=== PATIENT | male | born 1995 | race Two or more races ===

== ENCOUNTER 2024-05-04 03:56 | Emergency (ER) | payer SELFPAY ==
--- NOTE | 2024-05-04 04:08 | EDNOTE_ITS ---
ED Psych RME/HPI General Chief Complaint: Psychiatric Symptoms Stated Complaint: MENTAL EVALUATION Time Seen by Provider: 05/04/24 04:05 Source: patient and EMS Arrival date/time: 05/04/24 03:56 Mode of arrival: EMS Limitations: no limitations RME / HPI RME / HPI Narrative: Dr. Topete?s Main ED Evaluation: 28-year-old male presents to the ED on a 5150 hold for psychiatric evaluation. Per EMS, the patient's father called 911 after the patient exhibited bizarre behavior, including crawling around in the attic. 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 He reports excessive caffeine consumption today while studying and states he heard mice in the attic, prompting him to set traps. He acknowledges possibly disturbing his father and siblings due to loud movements. The patient reports sleep deprivation, stating his last full eight-hour sleep was approximately two days ago. He denies suicidal or homicidal ideation and has no acute medical complaints. Related Data Previous Rx's ?Medication ?Instructions ?Recorded doxycycline monohydrate 100 mg 100 mg PO BID 7 days #1 4 caps 05/04/24 capsule ibuprofen 600 mg tablet 600 mg PO Q6H PRN pain #20 t abs 05/04/24 Allergies Allergy/AdvReac Type Severity Reaction Status Date / Time No Known Allergies Allergy Verified 05/04/24 04:17 Review of Systems Review of Systems Systems Reviewed: All systems reviewed, normal except as documented Past Medical History Social History SMOKING STATUS: Never smoker ED Exam General Limitations: Present no limitations General appearance: Present alert and in no apparent distress Head Head exam: Present atraumatic Eye Eye exam: Present normal appearance, PERRL and EOMI ENT ENT exam: Present normal exam, normal oropharynx and mucous membranes moist Neck Neck exam: Present normal inspection, full ROM and trachea midline Chest Chest inspection: Present normal inspection and symmetric chest wall rise Respiratory Respiratory exam: Present normal lung sounds bilaterally Cardiovascular Cardiovascular exam: Present regular rate, normal rhythm and normal heart sounds Abdominal Exam Abdominal exam: Present soft and normal bowel sounds Extremities Exam Extremities exam: Present normal inspection and full ROM Back Exam Back exam: Present normal inspection and full ROM Neurological Exam Neurological exam: Present alert, oriented X3 and CN II-XII intact Expanded Psychiatric Exam Expanded psych exam: Present pressured speech, delusional and auditory hallucinations Skin Skin exam: Present warm, dry, intact and normal color Course Quality Measures none Orders Category Date Time Status Diet Regular Diet 05/04/24 Breakfast Active Acetaminophen Stat Lab 05/04/24 04:57 Completed Alcohol, Blood Medical Stat Lab 05/04/24 04:57 Completed Basic Metabolic Panel Stat Lab 05/04/24 04:57 Completed CBC Stat Lab 05/04/24 04:57 Completed Drug Screen,Urine Stat Lab 05/04/24 05:10 Completed Salicylate Stat Lab 05/04/24 04:57 Completed TSH [Thyroid Stimulating Hormone] Stat Lab 05/04/24 04:57 Completed LORazepam [Ativan] Med 05/04/24 04:31 Discontinued 1 mg PO X1 ONE Vital Signs Vital signs: Vital Signs Temperature 99.2 F 05/04/24 04:27 Pulse Rate 123 H 05/04/24 04:27 Respiratory Rate 18 05/04/24 04:27 Blood Pressure 151/100 H 05/04/24 04:27 Pulse Oximetry (%) 97 05/04/24 04:27 Oxygen Delivery Method Room Air 05/04/24 04:27 Psych MDM Narrative MDM Narrative:: 0600 Care signed out to Dr. Dickinson. Past medical, surgical, social and family history reviewed. Vitals and home medications reviewed. Results and treatment plan discussed. They will assume the care of the patient at this time and will follow the patient, pending medical clearance and mental health evaluation. Scribe Attestation: I, Mark Vallejo, am scribing for and in the presence of Dr. Topete. Provider Notation: Although this document has been carefully reviewed, there may still be some phonetic and other typographical errors. These errors are purely grammatical due to imperfections in the software program and should not be construed in any way to compromise the substance of the patient's medical care during this visit. Patient data External records reviewed:: EMS form and None Clinical information provided by:: patient and EMS Social determinants that could affect healthcare access:: none Patient has the following chronic illnesses:: na How is presenting disease/condition affected by chronic disease/condition?: no chronic disease Evaluation data The following diagnostics were reviewed and interpreted by me:: lab results Lab and/or radiology exams considered but not ordered:: na Interpretation Summary: pending work-up Medications / Prescriptions Medications or Prescriptions considered but not ordered:: na Medication administrations:: Medication Administration History Discontinued Medications Lorazepam (Lorazepam 0.5 Mg Tablet) 1 mg PO X1 ONE Stop: 05/04/24 04:32 Last Admin: 05/04/24 04:58 Dose: 1 mg Documented By: LB as above, if any Consultations Consultation(s) initiated? (list below): Yes Consultation #1 (Physician, Specialty, Details): Mental health Diagnosis Psych Differential Diagnosis: other (Acute psychosis, cocaine abuse, methamphetamine abuse, and alcohol withdrawal.) Most likely diagnosis given after review of the tests above:: see clinical impression below Admission Indicated Admission indicated?: not indicated (sign out pending mental health eval) Admission Request Was there a request for admission?: No Disposition Plan Disposition Plan: other (specify) (sign out pending mental health eval) Discharge Plan Plan Patient Disposition: HOME (Self Care) Patient condition on transfer: Stable Prescriptions/Referrals Prescriptions/Med Rec: New ibuprofen 600 mg tablet 600 mg PO Q6H PRN (Reason: pain) Qty: 20 0RF doxycycline monohydrate 100 mg capsule 100 mg PO BID 7 Days Qty: 14 0RF Problem List Clinical Impression: Acute psychosis Patient/Caregiver Discharge Instructions Education Materials: ED Psychosis Additional Instructions: Follow-up with your primary care doctor. Consider referral to psychiatry or a psychologist. Print Language: Zambian
[2024-05-04 04:13] VITALS: BMI 28.0
[2024-05-04 04:27] VITALS: BP 151/100; PULSE 123; RESP 18; TEMP 37.3; O2SAT 97
[2024-05-04] MEDS: LORazepam 0.5 MG TABLET 1 MG PO (04:58)
[2024-05-04 05:14] LABS: Basophils # (Auto) 0.1 Thou/mm3 (0.0-0.2); Basophils % (Auto) 1 % (0-2.5); Eosinophils # (Auto) 0.1 Thou/mm3 (0.0-0.5); Eosinophils % (Auto) 0 % (0-10); Hematocrit 46.5 % (41.0-53.0); Immature Granulocytes % (Auto) 0 % (0-0); Immature Granulocytes Auto 0.06 Thou/mm3 (0.00-0.00); Lymphocytes # (Auto) 1.1 Thou/mm3 (1.0-4.8); Lymphocytes % (Auto) 8 % (10-50); Mean Corpuscular HGB Conc 34.4 g/dl (31.0-37.0); Mean Corpuscular Hemoglobin 29.8 pg (25.0-35.0); Mean Corpuscular Volume 87 fL (80-100); Monocytes # (Auto) 1.3 Thou/mm3 (0.0-0.8); Monocytes % (Auto) 9 % (0-12); Neutrophils # (Auto) 11.4 Thou/mm3 (1.8-7.7); Neutrophils % (Auto) 82 % (37-80); Nucleated Red Blood Cell % 0 /100 WBC (0); Platelet Count 263 Thou/mm3 (140-440); RDW Standard Deviation 38.7 fL (35.1-43.9); Red Blood Count 5.37 Miln/mm3 (4.50-5.90); White Blood Count 13.9 Thou/mm3 (3.8-10.6)
[2024-05-04 05:56] LABS: Acetaminophen < 2.0 mcg/mL (10.0-20.0); Alcohol, Blood Medical < 3.0 mg/dL (0-10.0); Anion Gap 13 (7-16); BUN/Creatinine Ratio 11 Ratio (12-20); Blood Urea Nitrogen 16 mg/dL (9-23); Calcium 10.4 mg/dL (8.3-10.6); Carbon Dioxide 25.2 mMol/L (20.0-31.0); Chloride 103 mMol/L (98-107); Creatinine (Component) 1.4 mg/dL (0.6-1.3); Estimated Creatinine Clearance 84.7 mL/min (>60); Glucose 99 mg/dL (74-106); Osmolality,Calculated 282 (275-295); Potassium 4.2 mMol/L (3.4-5.1); Salicylate < 3.0 mg/dL; Sodium 141 mMol/L (136-145); Thyroid Stimulating Hormone 2.87 uIU/mL (0.55-4.78); eGFR > 60 See Note
[2024-05-04 05:57] LABS: Amphetamine/Methamp Scrn,U Positive (Negative); Barbiturate Screen,Urine Negative (Negative); Benzodiazepines Screen,Urine Negative (Negative); Benzoylecgonine Screen, Ur Negative (Negative); Fentanyl Screen,Urine Negative (Negative); Opiate Screen,Urine Negative (Negative); THC Screen,Urine Negative (Negative)
[2024-05-04 06:07] VITALS: BP 130/88; PULSE 103; RESP 18; TEMP 36.3; O2SAT 97
--- NOTE | 2024-05-04 07:08 | PC.NURSE ---
Received report from Juan GODOY and assumed are of patient. Patient resting in bed and staring at ceiling while smiling. Patient received water as requested and sitting up at side of bed. No complaints at this time. Patient states he's seeing swirls in room.
[2024-05-04 08:22] VITALS: BP 144/83; PULSE 119; RESP 18; TEMP 36.5; O2SAT 95
--- NOTE | 2024-05-04 08:59 | PC.CC ---
Patient is a 28 year male BIBA on a 5150-Hold by [employer] for Danger to Self and Others. It was reported by [facility] that patient was hearing voices in the attic and began to search the attic for the voices. ASWMar made [id number] contact with patient. ASW introduced self, role, and reason for visit.?Patient appeared alert and oriented to self, location, and situation. Patient was pleasant and engaged in initial assessment. Patient mood euthymic throughout assessment; his behavior appeared appropriate. Thought process was linear and organized. Patient reports that yesterday he began to hear mice in the attic and was tired of hearing them scratch the ceiling. Patient reports that he went into the attic and made a hole. Patient denied past or current mental health diagnosis and ever being connected to outpatient mental health. Patient denied past or current suicide attempts, suicidal and homicidal ideations, visual and auditory hallucinations. Patient denied ever being placed on a 5150-hold. Patient reports he is too busy for a referral to outpatient mental health services and does not want a referral. Patient reports he feels safe going back home and has no concerns. Despite patient testing positive for substances patient denied substance use. Upon clinical consultation with TRANSFORMATION MANAGER, Honey Lieberman patient?s 5150-hold will be rescinded as patient does not meet criteria. Patient is not open or willing to engage in outpatient mental health services. ASW provided community resources: Warm Line and Crisis Line. ASW provided update of 5150-hold being rescinded to Dr. Dickinson, grinding wheel inspector Alicia, and bedside WALT Johnson.
[2024-05-04 09:15] VITALS: BP 138/79; PULSE 99; RESP 18; TEMP 36.6; O2SAT 97
--- NOTE | 2024-05-04 09:41 | PD.EDADDENDU ---
Emergency Room Addendum Addendum Narrative: 0600: Care assumed from Dr. Topete, the previous shift emergency physician. Past medical, surgical, social and family history reviewed. Vitals and home medications reviewed. I will assume the care of the patient at this time, pending mental health evaluation. Please refer to the emergency department record for history and examination from initial visit.?The following addendum documentation note is intended to reflect any pending information, findings, or radiology results not included in the patient?s initial chart. Patient has been evaluated by mental health team and rescinded the 5150 hold. Patient was provided with appropriate resources. Will DC home. DISPOSITION: Home DIAGNOSIS: Acute psychosis
== END 2024-05-04 09:50 | disposition home or self-care (01) ==
PROVIDERS: Emergency Provider Emergency Medicine
DX: F23 Brief psychotic disorder (principal)
CPT/HCPCS: 36415; 80048; 80307; 80320; 80329; 84443; 85025; 90839; 96127; 99284; A9270; G0480